=== PATIENT | male | born 2000 | race Caucasian/White ===

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

== ENCOUNTER 2022-05-18 15:24 | Emergency (ER) | payer SELFPAY ==
[2022-05-18] MEDS ORDERED: Sodium Chloride 0.9% 2.5 ML Syringe FLUSH PRN (16:22)
[2022-05-18] MEDS ORDERED: Sodium Chloride 0.9% 10 ML Syringe FLUSH PRN (16:22)
[2022-05-18] MEDS ORDERED: Sodium Chloride 0.9% 1,000 ML IV SCH ×2 (16:30→18:15)
[2022-05-18 17:47] LABS: CARBON DIOXIDE,CO2 29.3 mmol/L (21.0-32.0)
[2022-05-18 17:57] LABS: CORONAVIRUS COVID-19 NAA NEGATIVE (NEGATIVE); INFLUENZA A NAA NEGATIVE (NEGATIVE); INFLUENZA B NAA NEGATIVE (NEGATIVE)
[2022-05-18] MEDS ORDERED: Sodium Chloride 0.9% 1,000 ML IV STA (18:35)
== END 2022-05-18 19:13 | disposition home or self-care (01) ==
LOC: MW.ED 15:24
DX: R55 Syncope and collapse (principal); Z88.0 Allergy status to penicillin; Z20.822 Contact with and (suspected) exposure to COVID-19
CPT/HCPCS: 0240U; 36415; 70450; 71045; 80053; 80305; 81003; 82947; 83735; 84484; 85025; 93005; 96360; 99284; J3490; J7030